=== PATIENT | female | born 1960 | race Caucasian/White ===

== ENCOUNTER 2020-04-10 17:15 | Emergency (ER) | payer BC, OTHER ==
[2020-04-10 20:42] VITALS: BP 157/87; PULSE 121; TEMP 100.1; BMI 29.9
[2020-04-10] MEDS ORDERED: KETOROLAC TROMETHAMINE 60 MG/2 ML VIAL IM ONE (21:39)
[2020-04-10] MEDS ORDERED: KETOROLAC TROMETHAMINE 60 MG/2 ML VIAL ONE (21:42)
== END 2020-04-10 21:59 | disposition home or self-care (01) ==
LOC: FER 17:15
PROC: 3E0233Z Introduction of Anti-inflammatory into Muscle, Percutaneous Approach (ICD-10-PCS; principal; 2020-04-10)
DX: S83.92XA Sprain of unspecified site of left knee, initial encounter (principal)
CPT/HCPCS: 73562-TC-LT-FY; 99284-25